=== PATIENT | male | born 1945 | race Caucasian/White ===

== ENCOUNTER 2018-12-25 18:04 | Emergency (ER) | payer OTHER ==
[~2018-12-25] VITALS: Ht 180.3 cm; Wt 99.8 kg
[2018-12-25] MEDS ORDERED: IBUPROFEN 600 MG TAB PO ONE (18:30)
[2018-12-25 19:34] LABS: Basophils # (auto) 0.1 uL; Basophils % (auto) 0.4 % (0.0-2.0); Eosinophils # (auto) 0.1 uL; Eosinophils % (auto) 0.6 % (0.0-7.0); Hematocrit 45.3 % (41.0-53.0); Hemoglobin 14.8 g/dL (13.5-17.5); Lymphocytes # (auto) 0.5 uL; Lymphocytes % (auto) 3.3 % (10.0-50.0); Mean Corpuscular Hemoglobin 28.4 pg (28.0-32.0); Mean Corpuscular Hgb Conc. 32.7 g/dL (32.0-36.0); Mean Corpuscular Volume 86.9 fL (80.0-100.0); Monocytes # (auto) 0.5 uL; Monocytes % (auto) 3.3 % (0.0-12.0); Neutrophils # (auto) 14.6 uL; Neutrophils % (auto) 92.4 % (37.0-80.0); Platelet Count (auto) 179 10^3/uL (140-450); Red Blood Cells 5.22 10^6/uL (4.5-5.90); Red Cell Distribution Width 13.9 % (11.8-14.3); White Blood Cell 15.8 10^3/uL (4.4-10.8)
[2018-12-25 19:49] LABS: Chloride 104 mmol/L (98-107); Sodium 136 mmol/L (136-145)
[2018-12-25 19:54] LABS: Albumin 3.4 g/dL (3.4-5.0); Anion Gap 7 (5-15); Blood Urea Nitrogen 19 mg/dL (7-18); Calcium 8.8 mg/dL (8.5-10.1); Carbon Dioxide 25 mmol/L (21-32); Glucose 244 mg/dL (74-106)
[2018-12-25 19:58] LABS: Aspartate Aminotransferase 23 U/L (15-37); BUN/Creatinine Ratio 19.2; Bilirubin, Total 0.9 mg/dL (0.2-1.0); GFR African American 96 mL/min; GFR Non-African American 79 mL/min; Total Protein 6.9 g/dL (6.4-8.2)
[2018-12-25 20:02] LABS: Alkaline Phosphatase 134 U/L (45-117)
[2018-12-25 20:05] LABS: Alanine Aminotransferase 32 U/L (16-61)
[2018-12-26 07:07] LABS: INR 1.05 (0.9-1.15); Partial Thromboplastin Time 27.2 sec (23.78-33.04); Prothrombin Time 11.2 sec (9.27-12.13)
[2018-12-26] MEDS ORDERED: LEVOFLOXACIN 750MG 150 ML IV ONE (07:15)
[2018-12-26] MEDS ORDERED: SODIUM CHLORIDE 0.9% 1,000 ML IV ONE (07:15)
[2018-12-26] MEDS ORDERED: FUROSEMIDE 20 MG/2 ML VIAL IV ONE (07:15)
[2018-12-26] MEDS ORDERED: SODIUM CHLORIDE 0.9% 500 ML IV ONE (07:45)
[2018-12-26 10:00] VITALS: BP 126/62
== END 2018-12-26 10:20 | disposition home or self-care (01) ==
LOC: EDBD 18:04 → ER 18:04
DX: J18.1 Lobar pneumonia, unspecified organism (principal); D72.829 Elevated white blood cell count, unspecified; E11.65 Type 2 diabetes mellitus with hyperglycemia; I50.9 Heart failure, unspecified; N28.9 Disorder of kidney and ureter, unspecified; E86.0 Dehydration
CPT/HCPCS: 36415; 71045; 80053; 83605; 83880; 84484; 85025; 85379; 85610; 85730; 87040; 93005; 96361; 96365; 99284; J1956

== ENCOUNTER 2023-04-30 23:13 | Emergency (ER) | payer OTHER ==
[~2023-04-30] VITALS: Ht 180.3 cm; Wt 111.1 kg
[2023-05-01 00:20] LABS: INR 1.24 (0.9-1.15); Partial Thromboplastin Time 29.5 SEC (24.5-34.5); Prothrombin Time 12.8 sec (9.3-11.8)
[2023-05-01 00:21] LABS: Hematocrit 36.4 % (41.0-53.0); Hemoglobin 12.1 g/dL (13.5-17.5); Mean Corpuscular Hemoglobin 29.3 pg (28.0-32.0); Mean Corpuscular Hgb Conc. 33.3 g/dL (32.0-36.0); Mean Corpuscular Volume 88.1 fL (80.0-100.0); Red Blood Cells 4.13 10^6/uL (4.5-5.90); Red Cell Distribution Width 14.4 % (11.8-14.3); White Blood Cell 6.1 10^3/uL (4.4-10.8)
[2023-05-01 00:24] LABS: Albumin 2.9 g/dL (3.4-5.0); Calcium 8.5 mg/dL (8.7-10.4); Potassium 4.4 mmol/L (3.5-5.1)
[2023-05-01 00:25] VITALS: PULSE 71; RESP 16; O2SAT 96
[2023-05-01 00:27] LABS: Basophils % (manual) 0 (0.0-2.0); Blast Cells 0; Metamyelocytes % 0; Promyelocytes % 0; Reactive Lymphocytes 0
[2023-05-01 00:30] LABS: Bilirubin, Total 0.8 mg/dL (0.2-1.0); Total Protein 6.4 g/dL (6.4-8.2)
[2023-05-01 00:57] LABS: Band Neutrophils % (manual) 2; Eosinophils % (manual) 2 (0-7); Lymphocytes % (manual) 20 (10.0-50.0); Monocytes % (manual) 6 (0-12); Myelocytes % 4; Platelet Estimate Adequate
[2023-05-01 01:22] LABS: CRP High Sensitivity 1.58 mg/dL (< 0.3)
[2023-05-01 04:23] LABS: Alcohol, Urine < 3.0 mg/dL (0-10); Amphetamine Screen, Urine NEGATIVE (NEGATIVE); Barbiturate Scree,Urine NEGATIVE (NEGATIVE); Benzodiazephine Screen, Urine NEGATIVE (NEGATIVE); Cannabinoid Screen, Urine NEGATIVE (NEGATIVE); Cocaine Screen, Urine NEGATIVE (NEGATIVE); Opiate Scree,Urine NEGATIVE (NEGATIVE); Phencyclidine Screen, Urine NEGATIVE (NEGATIVE)
[2023-05-01] MEDS ORDERED: DOXY1CAP57 PO (04:27)
[2023-05-01] MEDS ORDERED: cefTRIAXone SOD 1,000 MG VL IM ONE (04:30)
[2023-05-01 04:35] LABS: Urine Bacteria NONE SEEN /hpf (None Seen); Urine Blood Negative /uL (Negative); Urine Clarity Clear (Clear); Urine Color Yellow (Yellow); Urine Protein, UAD TRACE (Negative); Urine Specific Gravity 1.022 (1.001-1.035); Urine WBC 8 /hpf (0 - 3)
[2023-05-01] MEDS ORDERED: LIDOCAINE 1% HCL (LOCAL ANESTH.) INJ 20ML MDV ONE (04:37)
[2023-05-01 04:48] VITALS: BP 114/51; PULSE 75; RESP 20; TEMP 98; O2SAT 96
== END 2023-05-01 05:39 | disposition home or self-care (01) ==
LOC: ER 23:16
DX: L97.528 Non-pressure chronic ulcer of other part of left foot with other specified severity (principal); L97.519 Non-pressure chronic ulcer of other part of right foot with unspecified severity; E11.621 Type 2 diabetes mellitus with foot ulcer; I10 Essential (primary) hypertension; R06.02 Shortness of breath; Z20.822 Contact with and (suspected) exposure to COVID-19; Z78.9 Other specified health status; Z79.899 Other long term (current) drug therapy
CPT/HCPCS: 36415; 73700; 80053; 80307; 80320; 81001; 82010; 83605; 83690; 83735; 83880; 83930; 84443; 84484; 85007; 85027; 85610; 85730; 86141; 87040; 96372; 99285; J0696; J2001; 87426